=== PATIENT | male | born 1980 | race African-American/Black ===

== ENCOUNTER 2017-09-18 18:52 | Emergency (ER) | payer OTHER ==
[~2017-09-18] VITALS: Ht 167.6 cm; Wt 115.7 kg
[~2017-09-18 18:52] MED LIST: LISI20TA24 PO; LOVASTATIN20 MG PO; MOBIC15 MG PO
== END 2017-09-18 22:32 | disposition home or self-care (01) ==
LOC: ED 18:52
DX: K11.20 Sialoadenitis, unspecified (principal)
CPT/HCPCS: 99282

== ENCOUNTER 2018-04-28 11:08 | Emergency (ER) | payer OTHER ==
[~2018-04-28] VITALS: Ht 157.5 cm; Wt 118.8 kg
[2018-04-28 11:11] VITALS: TEMP 97.7
[2018-04-28 12:01] LABS: PLATELET COUNT 124 K/uL (142-355)
[2018-04-28 12:15] LABS: POTASSIUM 3.5 mmol/L (3.6-5.2)
[2018-04-28 13:10] VITALS: BP 121/74
== END 2018-04-28 13:32 | disposition short-term general hospital (02) ==
LOC: ED 11:08
PROVIDERS: Family Medicine
DX: I21.4 Non-ST elevation (NSTEMI) myocardial infarction (principal); R07.89 Other chest pain
CPT/HCPCS: 36415; 80053; 83880; 84484; 85027; 85379; 93005; 96372; 99284; J1650

== ENCOUNTER 2018-04-28 13:34 | Outpatient (CLI) | payer OTHER | END 2018-04-28 15:00 | disposition short-term general hospital (02) | LOC: AMB 13:34 | DX: I21.4 Non-ST elevation (NSTEMI) myocardial infarction (principal); R07.89 Other chest pain | CPT/HCPCS: A0425; A0427 ==

== ENCOUNTER 2019-05-08 10:34 | Emergency (ER) | payer OTHER ==
[~2019-05-08] VITALS: Ht 157.5 cm; Wt 113.4 kg
[2019-05-08 11:21] LABS: PLATELET COUNT 165 K/uL (142-355)
[2019-05-08 11:25] LABS: POTASSIUM 3.9 mmol/L (3.6-5.2); SODIUM 137 mmol/L (136-145)
[2019-05-08 12:30] VITALS: BP 137/88; TEMP 97.9
== END 2019-05-08 12:35 | disposition home or self-care (01) ==
LOC: ED 10:34
PROVIDERS: Family Medicine
DX: R07.89 Other chest pain (principal); R00.1 Bradycardia, unspecified; I44.5 Left posterior fascicular block
CPT/HCPCS: 36415; 80053; 81000; 82550; 84484; 85027; 93005; 96374; 99284; J2405

== ENCOUNTER 2022-12-27 08:51 | Outpatient (CLI) | payer OTHER | END 2022-12-27 20:09 | disposition home or self-care (01) | LOC: CT 08:51 | PROVIDERS: ATTEND Family Medicine | DX: R10.9 Unspecified abdominal pain (principal); K62.89 Other specified diseases of anus and rectum; K59.00 Constipation, unspecified; K64.9 Unspecified hemorrhoids | CPT/HCPCS: 36415; 82565; 84520; Q9963 ==

== ENCOUNTER 2023-04-10 10:11 | Outpatient (CLI) | payer OTHER ==
[2023-04-10 11:07] LABS: PLATELET COUNT 69 K/uL (142-355)
== END 2023-04-10 23:02 | disposition home or self-care (01) ==
LOC: RAD 10:11
PROVIDERS: ATTEND Surgery
DX: Z01.818 Encounter for other preprocedural examination (principal); K60.3 Anal fistula
CPT/HCPCS: 36415; 80053; 85027; 93005